=== PATIENT | female | born 1940 | race Caucasian/White ===

== ENCOUNTER 2017-03-30 06:20 | Day surgery (SDC) | payer OTHER ==
[~2017-03-30] VITALS: Ht 167.6 cm; Wt 63.5 kg
[~2017-03-30 06:20] MED LIST: AREDS 2 PO
[2017-03-30 07:09] VITALS: BP 137/73
[2017-03-30 07:50] LABS: EOSINOPHIL (%) 5.3 % (0-5); EOSINOPHIL COUNT 0.4 K/uL (0-0.3); IMMATURE GRANULOCYTE (%) 0.4 % (0.0-0.7); INSTRUMENT ABS NEUTROPHIL CT 4.5 K/uL; LYMPHOCYTE COUNT 0.9 K/uL (1.0-2.8); MCHC 32.8 G/DL (30.0-36.0); MCV 91.5 FL (83-99); MEAN PLAT.VOLUME 10.3 uM^3 (9.5-12.4); MONOCYTE (%) 13.7 % (3-12); MONOCYTE COUNT 0.9 K/uL (0-0.8); NEUTROPHIL (%) 67.1 % (45-76); NEUTROPHIL COUNT 4.5 K/uL (1.8-6.4); PLATELET COUNT 140 K/uL (156-360); RBC DIS.WIDTH-CV 13.7 % (11.8-14.6); RBC DIS.WIDTH-SD 45.8 % (39-53); RED BLOOD COUNT 4.26 M/uL (3.80-5.20); WHITE BLOOD COUNT 6.7 K/uL (4.1-10.2)
[2017-03-30 08:03] LABS: INTER. NORMALIZED RATIO 1.1; PROTHROMBIN TIME 11.1 (9.2-11.2); PTT 27.3 (25-32)
[2017-03-30 08:06] LABS: ANION GAP 9 MEQ/L (2-14); CHLORIDE 105 MEQ/L (99-109); POTASSIUM 4.1 MEQ/L (3.7-5.4); SAMPLE HEMOLYSIS CHECK 0; SAMPLE ICTERIC CHECK 0; SAMPLE LIPEMIA CHECK 0; SODIUM 142 MEQ/L (136-147); TOTAL BILIRUBIN 0.6 MG/DL (0.0-1.0)
[2017-03-30 08:12] LABS: ALKALINE PHOSPHATASE 78 IU/L (3-129); GFR ESTIMATE (CALCULATED) > 59 mL/min/; GLUCOSE 95 mg/dL (70-99); UREA NITROGEN (BUN) 28 mg/dL (9-23)
[2017-03-30] MEDS ORDERED: HYDROCODON-ACE1 EAC7 PO (10:30)
[2017-03-30] MEDS ORDERED: COLACE100 MG PO (10:30)
[2017-03-30 11:25] VITALS: BP 159/77
[2017-03-30 12:35] VITALS: BP 146/74
== END 2017-03-30 12:55 | disposition home or self-care (01) ==
LOC: SDC 06:20
PROVIDERS: Thoracic Surgery (Cardiothoracic Vascular Surgery)
PROC: 0WBC4ZX Excision of Mediastinum, Percutaneous Endoscopic Approach, Diagnostic (ICD-10-PCS; principal; 2017-03-30)
DX: R91.1 Solitary pulmonary nodule (principal); I10 Essential (primary) hypertension; F41.9 Anxiety disorder, unspecified
CPT/HCPCS: 80053; 85025; 85610; 85730; J0330; J0690; J1100; J1170; J2250; J2405; J3010